=== PATIENT | female | born 1990 | race Caucasian/White ===

== ENCOUNTER 2017-08-23 18:59 | Emergency (ER) | payer OTHER ==
[2017-08-23 19:24] VITALS: BP 136/73
--- NOTE | 2017-08-23 19:40 | EDPHY ---
General Time Seen by Provider: 08/23/17 19:31 Narrative: CHIEF COMPLAINT: Right foot injury HISTORY OF PRESENT ILLNESS: Patient presents with complaints of right foot pain and injury. She was chasing her dog when she stepped in a hole on the sidewalk around 3:00 p.m. Today. She does not know exactly what happened but she thinks that right foot inverted. She fell to the ground, sustaining abrasions to the top of the left foot, both knees. She did not strike or lose conscious. She has no headache. No neck pain. No chest, back or abdominal pain. She does have pain in the right foot and radiates up to the ankle. No numbness, tingling or weakness. No nausea vomiting. Pain is worse with palpation movement. Improved at rest. No other associated complaints or modifying factors. ESTABLISHED ORTHOPEDIST: None REVIEW OF SYSTEMS: Ten systems reviewed and are negative unless otherwise noted in the HPI PAST MEDICAL HISTORY: Anxiety PAST SURGICAL HISTORY: None SOCIAL HISTORY: Occasional smoker and occasional alcohol use. Works at the [employer]. Lives independently. FAMILY HISTORY: Noncontributory EXAMINATION General Appearance: Alert, no distress Cardiovascular: Symmetric DP and PT pulses 2+. Good signs of perfusion to both feet. Neurological: GCS 15. A&O, light sensation is symmetric to both feet and ankles. Strength of the great toe symmetric. No footdrop. Skin: Warm and dry, no rash. Superficial abrasion to the dorsum left foot. There is type 2 on the dorsum of the right foot. There is no puncture laceration. Extremities: Mild tenderness ecchymosis and edema to the arch to the right foot. Mild tenderness of the right midfoot. There is no pain of the right calcaneus. There is minimal pain of the right malleoli. No crepitus or deformity. Range of motion ankle symmetric. Psychiatric: Mood and affect normal DIFFERENTIAL DIAGNOSES: Including but not limited to ankle sprain, foot sprain, midfoot fracture, Lisfranc fracture, fibula fracture, tibial fracture, abrasions MDM: 7:40 p.m. Acute injury with right ankle and foot sprain with no puncture laceration. She is neuro intact. X-rays of the foot and ankle are pending. I have ordered ibuprofen. She is resting comfortably in no acute distress. 8:05 p.m. X-ray as read by me, without radiologist, reveals no acute fracture. There may be some widening of the distance between the medial and middle cuneiform. I will await radiologist interpretation. 8:30 p.m. X-ray has been read as negative by radiologist for both the ankle and foot. She has been placed in a postoperative shoe and ambulate without difficulty. We discussed weight-bearing as tolerated, ice, elevation anti-inflammatories. We discussed orthopedic follow-up if no resolution of pain within next 7-10 days. We discussed ED precautions for worsening pain, numbness, tingling, weakness. We discuss care of the abrasions. She is comfortable this plan, she is dizzy initially SUPERVISION: This patient was independently evaluated without direct involvement of or examination by the attending physician. ED Precautions: Worsening pain. Erythema, edema, cyanosis, pallor, paresthesia or anesthesia. - Diagnostics Imaging Results: Imaging Impressions Ankle X-Ray 08/23/17 19:42 Impression: No definite right ankle fracture. Foot X-Ray 08/23/17 19:42 Impression: No definite fracture of the right foot. - History Smoking Status: Current some day smoker - Objective Vital Signs: Initial Vital Signs Temperature (C) 98.2 F 08/23/17 19:21 Heart Rate 65 08/23/17 19:21 Respiratory Rate 8 L 08/23/17 19:21 Blood Pressure 136/73 H 08/23/17 19:21 O2 Sat (%) 98 08/23/17 19:21 O2 Delivery Mode Room Air Allergies/Adverse Reactions: tramadol HCl [From Ultram] Allergy (Verified 08/23/17 19:21) Home Medications: Medication Instructions Recorded Obcp 09/26/10 Medications Given: Discontinued Medications Ibuprofen (Motrin) 600 mg PO EDNOW ONE Stop: 08/23/17 19:42 Last Admin: 08/23/17 20:20 Dose: 600 mg Departure - Departure Disposition: Home, Routine, Self-Care Clinical Impression: Abrasion, multiple sites Sprain of right foot Qualifiers: Encounter type: initial encounter Qualified Code(s): S93.601A - Unspecified sprain of right foot, initial encounter Ankle sprain Qualifiers: Encounter type: initial encounter Involved ligament of ankle: other ligament Laterality: right Qualified Code(s): S93.491A - Sprain of other ligament of right ankle, initial encounter Condition: Good Instructions: Ankle Sprain (ED), Foot Sprain (ED) Additional Instructions: 1. Weightbearing as tolerated 2. Ice and elevate often as needed 3. Ibuprofen 400 mg every 6-8 hours as needed for pain 4. Contact orthopedist for outpatient definitive care 5. ED precautions for worsening pain, numbness, tingling, weakness or foot drop 6. Irrigate and clean your abrasions daily. Apply thin layer of bacitracin or Neosporin once daily Referrals: Jethro Joel MD [Medical Doctor] - As per Instructions
[2017-08-23] MEDS ORDERED: IBUPROFEN 600 MG TAB PO ONE (19:41)
== END 2017-08-23 21:23 | disposition home or self-care (01) ==
DX: S93.601A Unspecified sprain of right foot, initial encounter (principal); S93.491A Sprain of other ligament of right ankle, initial encounter; S90.812A Abrasion, left foot, initial encounter; X50.9XXA Other and unspecified overexertion or strenuous movements or postures, initial encounter; Y92.480 Sidewalk as the place of occurrence of the external cause; Y99.8 Other external cause status; Y93.89 Activity, other specified
CPT/HCPCS: L4386